=== PATIENT | male | born 1940 ===

== ENCOUNTER 2017-05-09 06:21 | Day surgery (SDC) | payer MEDICARE ==
--- NOTE | 2017-05-06 09:11 | Anesthesia Consultation ---
Anesthesia Consult and Med Hx Date of service: 05/06/17 - Airway Anesthetic Teeth Evaluation: Poor, Crowns ROM Head & Neck: Adequate Mental/Hyoid Distance: Adequate Mallampati Class: Class III Intubation Access Assessment: Possibly Difficult - Pulmonary Exam CTA: Yes - Cardiac Exam Cardiac Exam: RRR (qamar - on coreg) - Pre-Operative Health Status ASA Pre-Surgery Classification: ASA3 Proposed Anesthetic Plan: General - Pulmonary Hx Smoking: No Hx Sleep Apnea: No (MARIELENA PRE SCREEN HIGH RISK) - Cardiovascular System Hx Hypertension: (X 30 YRS) - Endocrine Hx Renal Disease: Yes (CKD - Review labs when available)
[2017-05-06 09:32] LABS: Bilirubin,Urine NEG (Negative); Blood,Urine NEG (Negative); Color,Urine Yellow (Yellow); Urobilinogen,Urine < 2.0 mg/dL (<2.0)
[2017-05-06 09:51] LABS: Calcium 9.7 mg/dL (8.4-10.2)
[2017-05-09] MEDS ORDERED: MARCAINE 0.25% INFILTRATI ONE ×2 (06:41→08:37)
[2017-05-09] MEDS ORDERED: XYLOCAINE 1%/ EPI 1:100,000 INFILTRATI ONE (06:41)
[2017-05-09] MEDS ORDERED: NACL BACTERIOSTATIC INFILTRATI ONE (06:44)
[2017-05-09] MEDS ORDERED: ANCEF/STERILE WATER 2 GM/20 ML IV NR (07:00)
[2017-05-09] MEDS ORDERED: DILAUDID IV PRN (07:19)
[2017-05-09] MEDS ORDERED: DIPRIVAN 10 MG/ML IV ONE (07:19)
[2017-05-09] MEDS ORDERED: ZOFRAN IV PRN (07:19)
[2017-05-09] MEDS ORDERED: DILAUDID ONE (07:19)
[2017-05-09] MEDS ORDERED: XYLOCAINE MPF 2% ONE (07:19)
--- NOTE | 2017-05-09 07:19 | Anesthesia Day of Surgery ---
Anesthesia Day of Surgery - Day of Surgery Patient Examined: Yes Patient H&P Reviewed: Yes Patient is NPO: Yes
[2017-05-09] MEDS ORDERED: NACL 0.9% 1000 ML 1,000 ML ONE (07:22)
[2017-05-09] MEDS ORDERED: ROBINUL ONE (07:30)
[2017-05-09] MEDS ORDERED: NEO SYNEPHRINE/NS Syringe(OR USE) IV ONE (07:30)
[2017-05-09] MEDS ORDERED: NACL 0.9% 1000 ML 1,000 ML IV SCH ×2 (08:00)
[2017-05-09] MEDS ORDERED: NACL 0.9% IR ONE (08:27)
--- NOTE | 2017-05-09 08:59 | Short Stay Summary ---
Short Stay Documentation - Allergies and Medications Current Medications: Allergies No Known Allergies Allergy (Verified 05/03/17 12:34) Home Medications Medication Instructions Recorded Confirmed Last Taken Type Carvedilol 6.25 mg PO BID 07/09/14 05/03/17 Unknown History Fenofibrate 145 mg PO DAILY 07/09/14 05/03/17 Unknown History Aspirin [Lo-Dose Aspirin EC] 81 mg PO DAILY 05/03/17 05/03/17 Unknown History Ciprofloxacin HCl [Cipro] 500 mg PO BID 05/03/17 05/03/17 Unknown History Insulin NPH/Regular [Novolin 70/30] 1 unit SUB-Q DAILY 05/03/17 05/03/17 Unknown History Losartan/Hydrochlorothiazide 1 each PO DAILY 05/03/17 05/03/17 Unknown History [Losartan-Hctz 100-25 mg Tab] Tamsulosin [Flomax] 0.4 mg PO QHS 05/03/17 05/03/17 Unknown History traMADol [Ultram] 50 mg PO Q6HR PRN 05/03/17 05/03/17 Unknown History Active Medications Cefazolin Sodium (Ancef/Sterile Water 2 Gm/20 Ml) 2 gm IV PREOP NR Stop: 05/09/17 23:59 Hydromorphone HCl (Dilaudid) 0.5 mg IV Q10MIN PRN PRN Reason: Pain , Severe (7-10) Stop: 05/09/17 13:00 Sodium Chloride (Nacl 0.9% 1000 Ml) 1,000 mls @ 75 mls/hr IV DIRECT CARIDAD Last Admin: 05/09/17 07:25 Dose: 75 mls/hr Ondansetron HCl (Zofran) 4 mg IV ONCE PRN PRN Reason: Nausea And Vomiting Stop: 05/09/17 10:00 Short Stay Discharge Plan Activity: no restrictions, advance as tolerated Weight Bearing Status: Weight Bear as Tolerated Diet: regular Wound: per your surgeon's advice Special Instructions: physical therapy Durable Medical Equipment Needed Upon Discharge: Cane Additional Instructions: follow DC instruction sheet provided to you Follow up with: AMERICO BREWSTER MD [Staff Physician] - 14 Days
--- NOTE | 2017-05-09 09:50 | Operative Report ---
PREOPERATIVE DIAGNOSIS: Based on the MRI was a meniscus tear. POSTOPERATIVE DIAGNOSES: 1. Lateral meniscus tear, complex mid body and anterior horn, the lateral meniscus tear. 2. Synovitis, synovial perforation, right knee joint. 3. Mild to moderate osteoarthritis of right knee joint. COMPLICATIONS: None. ADDITIONAL POSTOPERATIVE DIAGNOSIS: Medial plica, right knee. SURGEON: Santos Jones M.D. GASTROENTEROLOGY TEACHER: Washington Salazar, operative tech. BRIEF HISTORY: The patient is a painful right knee, failed conservative treatment, opted to undergo surgical intervention. Risks, benefit discussed, informed consent obtained, brought to the hospital for the above procedure. DETAILS OF THE OPERATIVE REPORT: The patient was taken to the operating room. After smooth general endotracheal anesthesia, all the bony prominences were carefully padded, placed supine on the operating table. Thigh tourniquet was placed. Right knee, right lower extremity prepped and draped in sterile fashion. The patient was given 2 grams Ancef half an hour before the procedure. Leg elevated and tourniquet inflated to 300 mmHg. Lateral high lateral portal was created. Arthroscope was introduced. Diagnostic arthroscopy was performed. Findings noted below. The patient's MRI had shown a medial meniscus tear, but intraoperatively we noticed the patient had a complex tear of the lateral meniscus. Under direct visualization, the direct medial portal was created. Using synovial resector and biters arthroscopically, the partial lateral meniscectomy performed for tone on the anterior horn of the lateral meniscus in the mid body in a complex fashion which meniscus was torn and a partial meniscectomy was performed stable meniscal rim was achieved. Loose floating synovial tissue was deep suctioned out as well. Synovial hypertrophy with perforation was noticed and partial synovectomy was performed. Significant medial plica rubbing on the medial condyle was noticed and was removed and dissected as well. Once this was done, fluid was suctioned out and portal sites were closed with 3-0 nylon interrupted sutures. The patient tolerated the procedure well. Dressing was done with Xeroform, 4 x 4s, ABD, cast padding, Moe wrap. The patient before the dressing was performed, 3 mL of 0.25% plain Marcaine injected into each portal sites. The patient tolerated procedure well, shifted to recovery room in stable condition. Sponge and needle count was correct. Arthroscopic finding lateral gutter signs of synovitis, retropatellar area, signs of grade 3 changes about 20-30%. Trochlea grade 2 changes throughout. Medial plica present. Synovium, synovial hypertrophy and synovial proliferation present. Fat pad normal. Medial meniscus intact, medial femoral condyle grade 2 changes throughout. Medial tibial plateau, grade 3 chondromalacia throughout. PCL intact, ACL chronic partial tear, but stable. Lateral meniscus had a complex tear of the mid body of the lateral meniscus and tear of the anterior horn of the lateral meniscus. Grade 4 changes in about 30% to 40% of the lateral tibial plateau and grade 3 changes in about 40-50%. Lateral femoral condyle, grade 2 changes throughout with grade 3 changes about 10-20%. JOB# [id number] VAUGHN/MACIEJ
--- NOTE | 2017-05-09 10:54 | Post Anesthesia Evaluation ---
- Post Anesthesia Evaluation Patient Participated: Yes Airway Patent: Yes Stable Respiratory Function: Yes Nausea/Vomiting: No Temp > 96.8F: Yes Pain Manageable: Yes Adequeate Hydration: Yes Anesthesia Complications: No
[2017-05-09 16:12] VITALS: BP 148/88
== END 2017-05-09 10:40 | disposition home or self-care (01) ==
LOC: OR 06:21
PROVIDERS: ATTEND Orthopaedic Surgery
DX: M23.241 Derangement of anterior horn of lateral meniscus due to old tear or injury, right knee (principal); S83.91XA Sprain of unspecified site of right knee, initial encounter; X58.XXXA Exposure to other specified factors, initial encounter; Y93.9 Activity, unspecified; Y92.89 Other specified places as the place of occurrence of the external cause; Y99.9 Unspecified external cause status; M94.261 Chondromalacia, right knee; E78.00 Pure hypercholesterolemia, unspecified; Z90.5 Acquired absence of kidney; I12.9 Hypertensive chronic kidney disease with stage 1 through stage 4 chronic kidney disease, or unspecified chronic kidney disease; N18.9 Chronic kidney disease, unspecified; Z98.890 Other specified postprocedural states; Z79.899 Other long term (current) drug therapy
CPT/HCPCS: 29876; 29881; 36415; 80048; 81001; 82962; 83036; 87086; A4217; J0690; J1170; J2370; J2704; J7030